=== PATIENT | male | born 1980 | race Two or more races ===

== ENCOUNTER 2025-06-15 13:18 | Emergency (ER) | payer MEDICAID ==
[~2025-06-15] VITALS: Ht 175.3 cm; Wt 99.3 kg
[2025-06-15] MEDS ORDERED: PRED20TA PO (13:55)
[2025-06-15] MEDS ORDERED: FLUT16SP BNOSTRILS (14:11)
[2025-06-15 14:40] VITALS: BP 126/68; TEMP 98; O2SAT 100
== END 2025-06-15 14:14 | disposition home or self-care (01) ==
LOC: ER 13:27
DX: J34.89 Other specified disorders of nose and nasal sinuses (principal); M26.609 Unspecified temporomandibular joint disorder, unspecified side; H92.03 Otalgia, bilateral; R42 Dizziness and giddiness; R51.9 Headache, unspecified; Z88.0 Allergy status to penicillin; Z87.09 Personal history of other diseases of the respiratory system